=== PATIENT | male | born 1995 | race Hispanic/Latino ===

== ENCOUNTER 2025-01-19 13:55 | Emergency (ER) | payer OTHER ==
[~2025-01-19] VITALS: Ht 172.7 cm; Wt 89.8 kg
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
[2025-01-19] MEDS ORDERED: NAPR-1196 PO (16:24)
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
[2025-01-19 16:49] VITALS: BP 128/80; PULSE 56; RESP 16; TEMP 98.6; O2SAT 99
== END 2025-01-19 16:48 | disposition home or self-care (01) ==
LOC: EDH 13:55
DX: S23.3XXA Sprain of ligaments of thoracic spine, initial encounter (principal); K40.90 Unilateral inguinal hernia, without obstruction or gangrene, not specified as recurrent; F31.81 Bipolar II disorder; V89.2XXA Person injured in unspecified motor-vehicle accident, traffic, initial encounter; Y93.89 Activity, other specified; Y92.89 Other specified places as the place of occurrence of the external cause; Y99.8 Other external cause status
CPT/HCPCS: 99285; 71045; 76870; 96372; J1885